=== PATIENT | male | born 1940 | race Caucasian/White ===

== ENCOUNTER → 2016-11-11 | Outpatient (CLI) | payer OTHER ==
[~2016-11-11] MED LIST: ACETAMINOPHEN PO; AHIST25 MG PO; ALIGN4 MG PO; ALPHAGAN P5 ML OU; ASPIRIN81 M1 PO; ASPIRIN81 M2 PO; CARVEDILOL12.5 MG PO; COMBIGAN EYE DRO5 ML OS; FLOMAX0.4 M1 PO; KLOR-CON PO; LATANOPROST2.5 ML OS; LISINOPRIL-HCTZ1 T14 PO; LORTAB 7.5-5001 TAB PO; PANTOPRAZOLE SO40 MG PO; POTASSIUM CHLO10 ME1 PO; SIMVASTATIN20 MG PO; SYSTANE 0.3-0.415 ML OD
--- NOTE | ~2016-11-11 | US10 ---
[id number] [facility] [address] [place], [place] [address] [id number] O MR#: [id number] Acc #: [id number] NAME: PROSPER CLIFTON : 1940 SEX: M STUDY DATE/TIME: 11/11/2016 9:37 UNIT: [facility]US ROOM: STUDY DESCRIPTION: US Aorta Complete Attending Physician: Zachary Sung Jr., M.D. Referring Physician: Zachary Sung Jr., M.D. Ordering Physician: Zachary Sung Jr., M.D. Primary Care Physician: Zachary Sung Jr., M.D. MEDICAL IMAGING REPORT This report is preliminary unless electronic signature is present EXAM Screening AAA, 11/11/2016 HISTORY Smoking. Evaluate for presence of AAA. FINDINGS The proximal aorta has a velocity of 98 cm/sec, and a diameter of 2.05 x 1.08 cm. The mid aorta has a velocity of 105 cm/sec, and a diameter of 1.88 x 1.81 cm. The distal aorta has a velocity of 72 cm/sec, and a diameter of 2.11 x 2.25 cm. The right iliac artery measures 1.02 x 1.03 cm, the left common iliac artery measures 0.83 x 0.89 cm. The left iliac artery has a velocity of 90 cm/sec, and the right common iliac artery has a velocity of 147 cm/sec. IMPRESSION Patent flow seen throughout the aortoiliac system. No evidence of AAA. Dictated by... Guille Moran M.D. THIS IS AN ELECTRONICALLY VERIFIED REPORT Guille Moran M.D. at 11/17/2016 5:05 PM Keila TD: 11/11/2016 13:26 JOB #: [id number] MEDICAL IMAGING REPORT Page 1 of 1 COPY
== END | disposition home or self-care (01) ==
LOC: CGUS 09:13
DX: Z13.6 Encounter for screening for cardiovascular disorders (principal)
CPT/HCPCS: 76770